=== PATIENT | male | born 1965 | race Caucasian/White ===

== ENCOUNTER 2024-05-13 15:57 | Observation (INO) | payer OTHER ==
[~2024-05-13] VITALS: Ht 182.9 cm; Wt 92.9 kg
[~2024-05-13 15:57] MED LIST: JANUVIA25 MG PO; LANTUS100 U/ML SQ
[2024-05-13 16:35] LABS: COLLECTION METHOD CLEAN CATCH
[2024-05-13 16:38] LABS: URINE APPEARANCE CLEAR (CLEAR/HAZY); URINE BLOOD NEGATIVE (NEGATIVE); URINE COLOR YELLOW (YELLOW); URINE GLUCOSE 3+ (NEGATIVE); URINE KETONE NEGATIVE (NEGATIVE); URINE NITRATE NEGATIVE (NEGATIVE); URINE PROTEIN(semi-quant) NEGATIVE (NEGATIVE); URINE UROBILINOGEN 0.2 E.U/dL (0.2-1.0)
[2024-05-13] MEDS ORDERED: LORazepam 2 MG/ML 1 ML VIAL IV ONE (16:45)
[2024-05-13] MEDS ORDERED: NS 1,000 ML IV ONE ×2 (16:45→18:00)
[2024-05-13] MEDS ORDERED: fentaNYL 50 MCG/ML 2 ML VIAL IV ONE (17:00)
[2024-05-13 17:31] LABS: HEMATOCRIT 48.7 % (42.0-52.0); HEMOGLOBIN 16.2 g/dl (13.5-18.0); MEAN CELL VOLUME 93 fl (80.0-100.0); MEAN CORPUSCULAR HEMOGLOBIN 31 pg (27-31); MEAN CORPUSCULAR HGB CONC 33 g/dl (33.0-37.0); MEAN PLATELET VOLUME 11.2 fl (7.4-10.4); PLATELET COUNT 226 K/mm3 (130-400); RED BLOOD COUNT 5.22 M/mm3 (4.20-5.60); REDCELL DISTRIBUTION WIDTH-CV 13.3 % (11.5-14.5)
[2024-05-13 18:00] LABS: CALCIUM 8.9 mg/dL (8.4-10.2); CREATININE, serum 0.96 mg/dL (0.72-1.25); POTASSIUM 4.3 mEq/L (3.5-4.5)
[2024-05-13 18:27] LABS: BAND 2 % (0-10); EOSINOPHIL 1 % (0-4); LYMPHOCYTE 7 % (20.0-51.0); NEUTROPHILS 89 % (42.0-75.2)
[2024-05-13] MEDS ORDERED: FLOMAX 0.40.4 MG/CAP PO ×2 (19:07→20:59)
[2024-05-13] MEDS ORDERED: LR 1,000 ML IV SCH (20:15)
[2024-05-13] MEDS ORDERED: DULOXETINE HCL40 MG PO (20:55)
[2024-05-13] MEDS ORDERED: MOUNJARO5 MG/0.5 M SQ (20:56)
[2024-05-13] MEDS ORDERED: FOSAMAX 70MG TA70 MG PO (20:57)
[2024-05-13] MEDS ORDERED: MELATONIN5 M1 SL (20:57)
[2024-05-13] MEDS ORDERED: MIRALAX510G PO (20:58)
[2024-05-13] MEDS ORDERED: REFRESH PLUS 00.4 M1 OP (20:59)
[2024-05-13] MEDS ORDERED: IBU800 M1 PO (20:59)
[2024-05-13 21:00] VITALS: BP_SYST 98
[2024-05-13] MEDS ORDERED: JANUMET 1000 MG1 TA1 PO (21:00)
[2024-05-13] MEDS ORDERED: JARDIANCE25 PO (21:00)
[2024-05-13] MEDS ORDERED: Polyethylene Glycol 3350 17 GM PDS PO PRN (21:00)
[2024-05-13] MEDS ORDERED: PRINIVIL20 MG PO (21:01)
[2024-05-13] MEDS ORDERED: NEURONTIN300 MG/CAP PO (21:01)
[2024-05-13] MEDS ORDERED: ZOCOR 20MG20 MG PO (21:01)
[2024-05-13] MEDS ORDERED: SYNTHROID 0.0.025 MG PO (21:01)
[2024-05-13] MEDS ORDERED: LAC-HYDRIN LOT 225GM TP (21:01)
[2024-05-13] MEDS ORDERED: VIAGRA100 M1 PO (21:02)
[2024-05-13] MEDS ORDERED: Simvastatin 20 MG **** subs to Atorvastatin 10 MG PO SCH (21:02)
[2024-05-13] MEDS ORDERED: Gabapentin 300 MG CAP PO SCH (21:03)
[2024-05-13] MEDS ORDERED: TYLENOL 325MG325 MG PO (21:05)
[2024-05-13] MEDS ORDERED: CALCIUM 600MG+D1 TAB PO (21:06)
[2024-05-13] MEDS ORDERED: NORCO 325 MG-51 TAB PO (21:06)
[2024-05-13] MEDS ORDERED: VITAMIN D31000 I1 PO (21:06)
[2024-05-13] MEDS ORDERED: Insulin Glargine-ygfn (Lantus) SQ SCH (21:07)
[2024-05-13] MEDS ORDERED: PRILOSEC 20MG20 MG PO (21:09)
[2024-05-13] MEDS ORDERED: Melatonin 3 MG TAB PO SCH (21:15)
[2024-05-13] MEDS ORDERED: Acetaminophen 325 MG TAB PO PRN (21:15)
[2024-05-13] MEDS ORDERED: Carboxymethylcellulose PF Ophth 0.4 ML DROPPERETTE OP PRN (21:15)
[2024-05-13] MEDS ORDERED: Glucagon 1 MG VIAL IM PRN (21:45)
[2024-05-13] MEDS ORDERED: Dextrose (Glucose) 15 GM (4 x 3.75 GM) Chewable TABLET PACK PO PRN (21:45)
[2024-05-13] MEDS ORDERED: Dextrose 50% Water 25 GM/50 ML SYRINGE IV PRN (21:45)
[2024-05-13] MEDS ORDERED: Iohexol 350 - 100 ML VIAL IV ONE (22:07)
[2024-05-13] MEDS ORDERED: NS 100 ML IV ONE (22:08)
--- NOTE | 2024-05-13 22:15 | NUR ---
MEWS SCORE 4. CHARGE NURSE, ASIA NOTIFIED AND PATIENT ASSESSED BEDSIDE WITH THIS NURSE. PATIENT ASYMPTOMATIC- AXO X4, PLEASANT, DENIES PAIN OR SOA. WILL CONTINUE TO OBSERVE.
--- NOTE | 2024-05-13 22:18 | NUR ---
PATIENT ADMITTED TO ROOM 310 BROUGHT UP IN BED BY BOBCAT DRIVER/LABOR. VITAL SIGNS ARE: 98/61 BP WITH MAP OF 74, 114PULSE, 96% O2 ON RA AND 97.4 TEMP. PATIENT HAS BEDSIDE. HE IS AXO X4 AND ORIENTED TO ROOM. DENIES CHEST PAIN OR SOA. TELE IN PLACE AND IVF RESTARTED FOLLOWING CT ABD. ORIENTED TO ROOM. MED REC COMPLETE.
[2024-05-13 22:50] VITALS: BP 98/61; PULSE 114; TEMP 97.4
[2024-05-14] VITALS (10 sets, daily range): BP systolic 97–126; BP diastolic 61–84; PULSE 85–108; TEMP 98.3–99.4
--- NOTE | 2024-05-14 06:35 | NUR ---
THROUGHOUT THE NIGHT MATTIE SLEPT PEACEFULLY AND DENIED CHEST PAIN OR SOA. HR REMAINS TACHYCARDIC BUT IS TRENDING DOWN-CURRENTLY 109 BPM ON TELE. CARDIOLOGY CONSULT AND JOSÉ LUIS TYLER NOTIFIED. PATIENT JULIO CONTINUES TO DRAIN PALE YELLOW URINE. OTHER VS ARE WNL. TELE IS SINUS TACH. CALL LIGHT WITHIN REACH.
[2024-05-14] MEDS ORDERED: Omeprazole 20 MG **** subs to Pantoprazole 40 MG PO SCH (07:00)
[2024-05-14] MEDS ORDERED: Insulin Lispro (HumaLOG) SQ SCH ×2 (08:00→12:00)
--- NOTE | 2024-05-14 08:38 | NUR ---
[facility]ie[facility] NEGRITO Cain. Pt alert and oriented, awake in bed. Patient has LR running in left forearm IV.
[2024-05-14] MEDS ORDERED: Calcium Carb/Vit D3 500 mg-200 Units TAB PO SCH (09:00)
[2024-05-14] MEDS ORDERED: Insulin Glargine-ygfn (Lantus) SQ SCH (09:00)
[2024-05-14] MEDS ORDERED: DULoxetine 20 MG CAP PO SCH (09:00)
[2024-05-14] MEDS ORDERED: Cholecalciferol (Vit D3) 1000 Units TAB PO SCH (09:00)
--- NOTE | 2024-05-14 10:45 | NUR ---
THIS ARTIFACTS CONSERVATOR PROVIDED PT WITH WIPES TO PERFORM HIS OWN JULIO CARE REQUESTED. PROVIDED PATIENT WITH EDUCATION TO PERFORM CARE HIMSELF.
[2024-05-14 12:01] LABS: HEMATOCRIT 41.7 % (42.0-52.0); MEAN CELL VOLUME 94 fl (80.0-100.0); MEAN CORPUSCULAR HEMOGLOBIN 31 pg (27-31); MEAN CORPUSCULAR HGB CONC 33 g/dl (33.0-37.0); MEAN PLATELET VOLUME 11.1 fl (7.4-10.4); PLATELET COUNT 218 K/mm3 (130-400); RED BLOOD COUNT 4.46 M/mm3 (4.20-5.60); REDCELL DISTRIBUTION WIDTH-CV 13.5 % (11.5-14.5)
[2024-05-14 12:07] LABS: HEMOGLOBIN 13.8 g/dl (13.5-18.0)
[2024-05-14 12:10] LABS: CALCIUM 8.1 mg/dL (8.4-10.2); CREATININE, serum 0.72 mg/dL (0.72-1.25); POTASSIUM 3.7 mEq/L (3.5-4.5)
--- NOTE | 2024-05-14 12:14 | NUR ---
D: Maintenance Machine Repairer stopped by room on rounds. A: Pt was resting and content with in the room. Pt has no needs right now. P: Maintenance Machine Repairer informed pt that if he needed anything from the children's book author area to let his nurse know. Maintenance Machine Repairer will follow up as needed.
[2024-05-14 12:26] LABS: BAND 18 % (0-10); LYMPHOCYTE 14 % (20.0-51.0); NEUTROPHILS 56 % (42.0-75.2); PLATELET ESTIMATE NORMAL (NORMAL)
--- NOTE | 2024-05-14 13:31 | NUR ---
This nursing home assistant administrator reported off to NEGRITO Cain. Patient is sleeping, with bed in the lowest position, and call light is in reach. Patient has a new bag of LR running at 125ml/hr.
--- NOTE | 2024-05-14 14:49 | NUR ---
Fox Farmer met with patient to discuss discharge planning. Patient lives in [place] and sees Dr. Kristina Garcia for primary care at [facility]. Patient gets medications from either [facility] or [facility]. Patient does not use any DME and is independent with [employer]LS, including driving. Patient stated he has DPOA-HC that designates his , [place] (ph#[phone]). Patient advised he plans to return home at time of discharge. Discharge Plan: Home
--- NOTE | 2024-05-14 20:00 | NUR ---
Patient resting in bed. Rates pain at 3/10 for a headache, prn tylenol given. Denies any needs at this time. Assessment complete. IV in left forearm infusing without complications. Call light and personal items in reach. Bed in low position.
[2024-05-14] MEDS ORDERED: Atorvastatin 10 MG TAB PO SCH (21:00)
[2024-05-15 00:35] VITALS: BP_SYST 116
--- NOTE | 2024-05-15 02:33 | NUR ---
Dr. Altamirano notified of code status needs, new orders placed
[2024-05-15 04:07] VITALS: BP 120/77; PULSE 86; TEMP 97.1
[2024-05-15 04:43] VITALS: BP_SYST 120
[2024-05-15 07:56] VITALS: BP 122/81; PULSE 87; TEMP 98.2
--- NOTE | 2024-05-15 08:00 | NUR ---
Patient laying in bed sleeping, easily awakened with verbal command. A&Ox4. VSS. IV CDI, fluids infusing. Denies pain and discomfort. Call light within reach
[2024-05-15] MEDS ORDERED: Lisinopril 20 MG TAB PO SCH (09:00)
[2024-05-15 09:30] LABS: HEMATOCRIT 40.7 % (42.0-52.0); HEMOGLOBIN 13.5 g/dl (13.5-18.0); MEAN CELL VOLUME 93 fl (80.0-100.0); MEAN CORPUSCULAR HEMOGLOBIN 31 pg (27-31); MEAN CORPUSCULAR HGB CONC 33 g/dl (33.0-37.0); MEAN PLATELET VOLUME 10.7 fl (7.4-10.4); PLATELET COUNT 195 K/mm3 (130-400); RED BLOOD COUNT 4.37 M/mm3 (4.20-5.60); REDCELL DISTRIBUTION WIDTH-CV 13.7 % (11.5-14.5)
--- NOTE | 2024-05-15 12:44 | NUR ---
Discharge paperwork reviewed with the patient. PAtient verbalized an understanding. Education provided on leg bag and hurley catheter. IV removed, tip intact. Gauze and coban applied. PAtient ambulated independently with to awaiting vehicle. No further needs expressed
== END 2024-05-15 12:44 | disposition home or self-care (01) ==
LOC: COL.ER 15:57 → MEDICAL 20:01
PROVIDERS: Emergency Medicine; Internal Medicine; Physician Assistant; ADMIT Internal Medicine
DX: I95.1 Orthostatic hypotension (principal); R00.0 Tachycardia, unspecified; N40.1 Benign prostatic hyperplasia with lower urinary tract symptoms; R33.8 Other retention of urine; E87.20 Acidosis, unspecified; E11.649 Type 2 diabetes mellitus with hypoglycemia without coma; E11.40 Type 2 diabetes mellitus with diabetic neuropathy, unspecified; G89.29 Other chronic pain; E78.5 Hyperlipidemia, unspecified; E03.9 Hypothyroidism, unspecified; M81.0 Age-related osteoporosis without current pathological fracture; I77.819 Aortic ectasia, unspecified site; Z79.4 Long term (current) use of insulin; Z79.84 Long term (current) use of oral hypoglycemic drugs; Z79.85 Long-term (current) use of injectable non-insulin antidiabetic drugs; Z79.899 Other long term (current) drug therapy; Z79.890 Hormone replacement therapy; Z79.83 Long term (current) use of bisphosphonates; Z85.828 Personal history of other malignant neoplasm of skin
CPT/HCPCS: G0378; J1815; J2060; J3010; J7030; J7120; Q9967